=== PATIENT | female | born 1990 | race Caucasian/White ===

== ENCOUNTER 2017-04-01 14:07 | Emergency (ER) | payer MEDICAID ==
[~2017-04-01] VITALS: Ht 172.7 cm; Wt 99.2 kg
[2017-04-01] MEDS ORDERED: AMOX500C2 PO (15:33)
[2017-04-01 15:50] VITALS: BP 133/74
== END 2017-04-01 15:51 | disposition home or self-care (01) ==
LOC: ER 14:08
DX: O26.891 Other specified pregnancy related conditions, first trimester (principal); K08.89 Other specified disorders of teeth and supporting structures; Z88.0 Allergy status to penicillin; Z79.899 Other long term (current) drug therapy; Z3A.01 Less than 8 weeks gestation of pregnancy
CPT/HCPCS: 99283